=== PATIENT | female | born 1995 | race Hispanic/Latino ===

== ENCOUNTER 2021-06-27 15:14 | Day surgery (SDC) | payer OTHER ==
[2021-06-27 15:37] VITALS: BMI 29.2
[2021-06-27] MEDS ORDERED: hydrALAZINE 20 MG/ML VIAL SLOW IVP PRN (18:16)
== END 2021-06-27 17:25 | disposition home health service (06) ==
LOC: CSHLD/OP 15:14
PROVIDERS: ATTEND Obstetrics & Gynecology
DX: O36.8120 Decreased fetal movements, second trimester, not applicable or unspecified (principal); O99.342 Other mental disorders complicating pregnancy, second trimester; F43.9 Reaction to severe stress, unspecified; Z3A.24 24 weeks gestation of pregnancy; Z91.5 Personal history of self-harm
CPT/HCPCS: 99282

== ENCOUNTER 2021-09-04 12:49 | Inpatient (IN) | payer OTHER ==
[2021-09-04 13:26] VITALS: BMI 32.8
[2021-09-04] MEDS ORDERED: hydrALAZINE 20 MG/ML VIAL SLOW IVP PRN (13:26)
[2021-09-04] MEDS ORDERED: Promethazine HCl 25 MG/ML VIAL IM PRN (17:33)
[2021-09-04] MEDS ORDERED: Ondansetron PF 4 MG/2 ML Vial IVP PRN (17:33)
[2021-09-04] MEDS ORDERED: Zolpidem Tartrate 5 MG TAB PO PRN (17:33)
[2021-09-04] MEDS ORDERED: Acetaminophen 500 MG TAB PO PRN (17:33)
[2021-09-04 18:09] LABS: Hemoglobin 12.4 g/dL (12.0-15.5); Mean Corpuscular HGB CONC 35.4 g/dL (32.0-36.0); Mean Corpuscular Volume 93.1 fl (81.6-98.3); Mean Platelet Volume 9.6 fl (7.4-10.4); Platelet Count 242 10x3/uL (150-450); Red Blood Cell (RBC) Count 3.76 10x6/uL (3.90-5.03); White Blood Cell (WBC) Count 8.8 10x3/uL (3.5-10.5)
[2021-09-04 18:48] LABS: Syphilis Antibody Nonreactive (Nonreactive); Syphilis Antibody Index 0.04 S/CO (<1.00 Non-Reactive)
[2021-09-04 18:49] LABS: Hep B Surf Ag Non-Reactive S/CO (NonReactive)
[2021-09-04 18:52] LABS: HBSAg Index 0.19 S/CO (0-0.99)
[2021-09-04] MEDS: Betamet Acet/Betamet Na Ph 30 MG/5 ML VIAL IM SCH (18:53)
[2021-09-04 19:19] LABS: SARS-CoV-2 NAA Rapid Test Not Detected (NotDetected)
[2021-09-05] MEDS: Lactated Ringer's 1,000 ML IV SCH ×2 (09:00→11:30)
[2021-09-05] MEDS ORDERED: metFORMIN 500 MG TAB PO SCH ×2 (11:30→21:00)
[2021-09-05] MEDS: Betamet Acet/Betamet Na Ph 30 MG/5 ML VIAL IM SCH (18:32)
== END 2021-09-05 18:53 | disposition home or self-care (01) | DRG 833 ==
LOC: CSHLD/OP 12:49 → CSHLD 17:46
PROVIDERS: ADMIT Obstetrics & Gynecology; ATTEND Obstetrics & Gynecology
DX: O24.415 Gestational diabetes mellitus in pregnancy, controlled by oral hypoglycemic drugs (principal); Z20.822 Contact with and (suspected) exposure to COVID-19; Z3A.34 34 weeks gestation of pregnancy; O36.8330 Maternal care for abnormalities of the fetal heart rate or rhythm, third trimester, not applicable or unspecified; O28.8 Other abnormal findings on antenatal screening of mother
CPT/HCPCS: 36415; 36416; 76819; 85027; 86780; 86850; 86870; 86900; 86901; 87077; 87081; 87340; 87480; 87510; 87660; J0702; J7120; U0002

== ENCOUNTER 2021-09-06 17:45 | Day surgery (SDC) | payer OTHER ==
[2021-09-06 18:13] VITALS: BMI 32.8
== END 2021-09-06 20:21 | disposition home or self-care (01) ==
LOC: CSHLD/OP 17:45
PROVIDERS: ATTEND Obstetrics & Gynecology
DX: O36.8130 Decreased fetal movements, third trimester, not applicable or unspecified (principal); O24.419 Gestational diabetes mellitus in pregnancy, unspecified control; Z3A.34 34 weeks gestation of pregnancy; Z14.1 Cystic fibrosis carrier; Z90.49 Acquired absence of other specified parts of digestive tract; Z79.84 Long term (current) use of oral hypoglycemic drugs; Z79.899 Other long term (current) drug therapy
CPT/HCPCS: 76819

== ENCOUNTER 2021-09-25 19:37 | Day surgery (SDC) | payer OTHER ==
[2021-09-25 19:50] VITALS: BMI 33.4
[2021-09-25] MEDS ORDERED: hydrALAZINE 20 MG/ML VIAL SLOW IVP PRN (20:20)
== END 2021-09-25 20:39 | disposition home or self-care (01) ==
LOC: CSHLD/OP 19:37
PROVIDERS: ATTEND Obstetrics & Gynecology
DX: O99.891 Other specified diseases and conditions complicating pregnancy (principal); O24.419 Gestational diabetes mellitus in pregnancy, unspecified control; R10.9 Unspecified abdominal pain; Z3A.37 37 weeks gestation of pregnancy; Z79.84 Long term (current) use of oral hypoglycemic drugs; Z79.899 Other long term (current) drug therapy; Z90.49 Acquired absence of other specified parts of digestive tract
CPT/HCPCS: 99282

== ENCOUNTER 2021-09-29 10:45 | Inpatient (IN) | payer OTHER ==
[2021-09-29 12:53] VITALS: BMI 33.4
[2021-09-29] MEDS ORDERED: Acetaminophen 500 MG TAB PO PRN (13:27)
[2021-09-29] MEDS ORDERED: Ibuprofen 800 MG TAB PO PRN (13:27)
[2021-09-29] MEDS ORDERED: Methylergonovine 0.2 MG/ML VIAL IM PRN (13:27)
[2021-09-29] MEDS ORDERED: Carboprost 250 MCG/ML AMP IM PRN (13:27)
[2021-09-29] MEDS ORDERED: HYDROcodone/Acetaminophen 5/325 mg Tablet PO PRN (13:27)
[2021-09-29] MEDS ORDERED: Ondansetron PF 4 MG/2 ML Vial IVP PRN (13:27)
[2021-09-29] MEDS ORDERED: Promethazine HCl 25 MG/ML VIAL IM PRN (13:27)
[2021-09-29] MEDS ORDERED: Diphenoxylate HCl/Atropine Tablet PO PRN ×2 (13:27)
[2021-09-29] MEDS ORDERED: Butorphanol Tartrate 1 MG/ML VIAL SLOW IVP PRN (13:27)
[2021-09-29] MEDS ORDERED: Misoprostol 200 MCG TAB PR PRN (13:27)
[2021-09-29] MEDS ORDERED: Lidocaine 1% (PF) 30 ML VIAL SC PRN (13:27)
[2021-09-29] MEDS ORDERED: Docusate 100 MG CAP PO PRN (13:27)
[2021-09-29] MEDS ORDERED: hydrALAZINE 20 MG/ML VIAL SLOW IVP PRN (13:27)
[2021-09-29] MEDS ORDERED: NS w/ Oxytocin 30 units 500 ML IV SCH ×2 (13:30)
[2021-09-29] MEDS ORDERED: NS w/ Oxytocin 30 units 500 ML IVPB SCH (13:30)
[2021-09-29 13:54] LABS: Hemoglobin 12.3 g/dL (12.0-15.5); Mean Corpuscular HGB CONC 34.9 g/dL (32.0-36.0); Mean Corpuscular Hemoglobin 32.8 pg (27.0-33.0); Mean Corpuscular Volume 93.9 fl (81.6-98.3); Mean Platelet Volume 10.1 fl (7.4-10.4); Platelet Count 254 10x3/uL (150-450); RBC Distribution Width 13.5 % (11.5-14.5); Red Blood Cell (RBC) Count 3.75 10x6/uL (3.90-5.03); White Blood Cell (WBC) Count 8.2 10x3/uL (3.5-10.5)
[2021-09-29] MEDS ORDERED: Penicillin G Potassium 5 MILL.UNITS in Sodium Chloride 0.9% 100 ML IVPB SCH (14:00)
[2021-09-29] MEDS: Lactated Ringer's 1,000 ML IV SCH (14:02)
[2021-09-29 14:35] LABS: Hep B Surf Ag Non-Reactive S/CO (NonReactive); Syphilis Antibody Nonreactive (Nonreactive); Syphilis Antibody Index 0.05 S/CO (<1.00 Non-Reactive)
[2021-09-29 14:54] LABS: HBSAg Index 0.18 S/CO (0-0.99)
[2021-09-29] MEDS: Misoprostol 100 MCG TAB VAG SCH (15:16)
[2021-09-29 16:14] LABS: SARS-CoV-2 NAA Rapid Test Not Detected (NotDetected)
[2021-09-29] MEDS ORDERED: Dinoprostone 10 MG Suppository VAG SCH (17:00)
[2021-09-29] MEDS: Penicillin G 2.5 MILL.units 2.5 MILL.UNITS in Premix Bag 1 BAG IVPB SCH ×2 (19:01→23:17)
[2021-09-29] MEDS ORDERED: metFORMIN 500 MG TAB PO SCH (20:00)
[2021-09-29] MEDS ORDERED: Penicillin G Potassium 2.5 MILL.UNITS in Sodium Chloride 0.9% 50 ML IVPB SCH (23:15)
[2021-09-30] MEDS: Penicillin G 2.5 MILL.units 2.5 MILL.UNITS in Premix Bag 1 BAG IVPB SCH ×3 (03:03→16:04)
[2021-09-30] MEDS: Penicillin G Potassium 2.5 MILL.UNITS in Sodium Chloride 0.9% 50 ML IVPB SCH (07:11)
[2021-09-30] MEDS ORDERED: Fentanyl 2 mcg/Bup 0.1% Cadd 100 ML ONE (08:20)
[2021-09-30] MEDS: metFORMIN 500 MG TAB PO SCH (09:14)
[2021-09-30] MEDS ORDERED: Hydrocerin (Eucerin) Cream 120 gm Jar TOP PRN (09:35)
[2021-09-30] MEDS ORDERED: Naloxone HCl 0.4 mg/ml Vial IVP PRN ×2 (09:35)
[2021-09-30] MEDS ORDERED: ePHEDrine Sulfate 50 MG/10 ML VIAL SLOW IVP PRN (09:35)
[2021-09-30] MEDS ORDERED: Lactated Ringer's 500 ML IV PRN (09:35)
[2021-09-30] MEDS ORDERED: Promethazine HCl 25 MG/ML VIAL IM PRN (09:35)
[2021-09-30] MEDS ORDERED: diphenhydrAMINE 50 MG/ML VIAL IVP PRN (09:35)
[2021-09-30] MEDS ORDERED: Communication Order-Pharmacy FS PRN (09:45)
[2021-09-30] MEDS: Lactated Ringer's 1,000 ML IV SCH ×2 (10:08→17:36)
[2021-09-30] MEDS: Misoprostol 100 MCG TAB PO PRN ×2 (14:19→18:24)
[2021-09-30] MEDS: Ondansetron PF 4 MG/2 ML Vial IVP PRN ×2 (15:58→20:34)
[2021-09-30] MEDS: Fentanyl 2 mcg/Bupivacaine 0.1% Cassette 100 ML EPIDURAL SCH (17:37)
[2021-09-30] MEDS ORDERED: Ondansetron PF 4 MG/2 ML Vial ONE (20:35)
[2021-10-01] MEDS ORDERED: Penicillin G 2.5 MILL.units 50 ML ONE ×2 (00:03→05:51)
[2021-10-01] MEDS: Misoprostol 100 MCG TAB PO PRN ×2 (00:07→08:49)
[2021-10-01] MEDS: Fentanyl 2 mcg/Bupivacaine 0.1% Cassette 100 ML EPIDURAL SCH ×2 (00:26→08:50)
[2021-10-01] MEDS: Misoprostol 100 MCG TAB VAG SCH ×6 (05:53→12:45)
[2021-10-01] MEDS ORDERED: Penicillin G Potassium 2.5 MILL.UNITS in Sodium Chloride 0.9% 50 ML IVPB SCH ×2 (07:45→10:00)
[2021-10-01] MEDS: Lactated Ringer's 1,000 ML IV SCH ×4 (07:50→16:59)
[2021-10-01] MEDS: Penicillin G Potassium 2.5 MILL.UNITS in Sodium Chloride 0.9% 50 ML IVPB SCH ×3 (07:52→07:54)
[2021-10-01] MEDS: metFORMIN 500 MG TAB PO SCH ×2 (07:55→12:45)
[2021-10-01] MEDS: SODIUM CHLORIDE IVPB SCH ×2 (10:18→14:27)
[2021-10-01] MEDS: PENICILLIN IVPB SCH ×2 (10:18→14:27)
[2021-10-01] MEDS: Acetaminophen 325 MG TAB PO PRN (15:47)
[2021-10-01] MEDS ORDERED: Azithromycin 500 MG VIAL ONE (21:26)
[2021-10-01] MEDS ORDERED: PHENYLEPHRINE-NS 100 MCG/ML 10 ML SYRINGE ONE ×7 (21:49→23:37)
[2021-10-01] MEDS ORDERED: Fentanyl 100 MCG/2 ML VIAL ONE ×2 (21:56→22:19)
[2021-10-01] MEDS ORDERED: Methylergonovine 0.2 MG/ML VIAL ONE ×2 (21:57→22:35)
[2021-10-01] MEDS ORDERED: Lidocaine 2% PF 100 mg/5 ml Syringe ONE (22:03)
[2021-10-01] MEDS ORDERED: Ketamine 50 MG/ML (10ML VIAL) ONE (22:15)
[2021-10-01] MEDS ORDERED: Midazolam HCl 2 mg/2 ml Vial ONE (22:17)
[2021-10-01] MEDS ORDERED: Tranexamic Acid 1,000 MG/10 ML VIAL ONE ×2 (22:20→23:35)
[2021-10-01] MEDS ORDERED: Carboprost 250 MCG/ML AMP ONE ×3 (22:22→23:38)
[2021-10-01] MEDS ORDERED: Oxytocin 10 UNITS/ML VIAL ONE (22:35)
[2021-10-01] MEDS ORDERED: Misoprostol 200 MCG TAB ONE (23:33)
[2021-10-02] MEDS ORDERED: Carboprost 250 MCG/ML AMP ONE (00:02)
[2021-10-02] MEDS ORDERED: Fentanyl 100 MCG/2 ML VIAL ONE ×2 (00:22→02:39)
[2021-10-02] MEDS ORDERED: PROPOFOL 20 ML ONE (00:22)
[2021-10-02] MEDS ORDERED: cefTRIAXone\\ROCEPHIN 1 GM VIAL ONE (00:30)
[2021-10-02 00:37] LABS: Hemoglobin 12.2 g/dL (12.0-15.5); Mean Corpuscular HGB CONC 31.9 g/dL (32.0-36.0); Platelet Count 226 10x3/uL (150-450); RBC Distribution Width 19.5 % (11.5-14.5); Red Blood Cell (RBC) Count 4.35 10x6/uL (3.90-5.03); White Blood Cell (WBC) Count 34.9 10x3/uL (3.5-10.5)
[2021-10-02] MEDS ORDERED: PHENYLEPHRINE-NS 100 MCG/ML 10 ML SYRINGE ONE (00:39)
[2021-10-02] MEDS ORDERED: Calcium Chloride 1 GM/10 ML Abboject SYRINGE ONE ×2 (00:39→08:00)
[2021-10-02] MEDS ORDERED: Rocuronium Bromide 10 MG/ML (10ML VIAL) ONE (00:41)
[2021-10-02] MEDS ORDERED: Morphine PF 10 MG/10 ML VIAL ONE (01:06)
[2021-10-02] MEDS ORDERED: Albumin 5% 250 ML ONE (01:25)
[2021-10-02] MEDS ORDERED: Midazolam HCl 5 mg/5 ml Vial ONE (01:34)
[2021-10-02] MEDS ORDERED: metroNIDAZOLE 500 MG/100 ML BAG ONE (01:47)
[2021-10-02 02:25] LABS: Fibrinogen 277 mg/dL (220-504); INR-International Normal Ratio 1.1; PTT 27.1 sec (22.0-33.0); Prothrombin Time 11.9 sec (9.5-12.1)
[2021-10-02 02:27] LABS: D-Dimer Test Greater than 35.20 mg/L FEU (0.19-0.50)
[2021-10-02 02:39] LABS: Platelet Count 226 10x3/uL (150-450)
[2021-10-02] MEDS ORDERED: Morphine 2 MG/ML VIAL SLOW IVP PRN (03:15)
[2021-10-02] MEDS ORDERED: Lorazepam 2 MG/ML VIAL SLOW IVP PRN (03:15)
[2021-10-02] MEDS ORDERED: Propofol 1,000 MG/100 ML VIAL IV ONE (03:15)
[2021-10-02] MEDS ORDERED: DISCONTINUE PREVIOUS NARCOTIC PAIN MEDICATIONS AND BENZODIAZEPINES FS SCH (03:15)
[2021-10-02] MEDS ORDERED: Propofol 1,000 MG/100 ML VIAL IV PRN (03:15)
[2021-10-02] MEDS ORDERED: fentaNYL Citrate-0.9 % NaCl/PF 100 ML IVPB SCH (03:15)
[2021-10-02] MEDS ORDERED: Fentanyl BOLUS 250 ML IVPB PRN (03:15)
[2021-10-02] MEDS ORDERED: Propofol BOLUS 1,000 MG/100 ML VIAL IV PRN (03:15)
[2021-10-02] MEDS: Lactated Ringer's 1,000 ML IV SCH ×2 (03:38→15:49)
[2021-10-02 03:41] LABS: ALV-art Gradient 186.025 mmHg (0-20); Actual Bicarbonate (HCO3a) 16.7 mEq/L (22-28); CO2 Tension 27.9 mmHg (35.0-45.0); Calcium, Ionized (arterial) 1.37 mmol/L (1.12-1.30); Carboxyhemoglobin (COHb) 0.6 gm% (0.0-3.0); Hemoglobin (Hb) 10.8 g/dL (12.0-16.0); O2 Tension (PaO2), arterial 206.9 mmHg (80.0-100.0); Potassium - ABG Lab 4.1 mmol/L (3.70-5.30); Puncture Site RBA; pH, Arterial 7.39 (7.35-7.45)
[2021-10-02] MEDS: Morphine 4 MG/ML VIAL SLOW IVP PRN ×9 (04:18→21:07)
[2021-10-02 04:31] LABS: Hemoglobin 10.3 g/dL (12.0-15.5); Mean Corpuscular Volume 85.7 fl (81.6-98.3); Mean Platelet Volume 9.2 fl (7.4-10.4); RBC Distribution Width 16.6 % (11.5-14.5); Red Blood Cell (RBC) Count 3.43 10x6/uL (3.90-5.03); White Blood Cell (WBC) Count 14.1 10x3/uL (3.5-10.5)
[2021-10-02 04:43] LABS: ALT (SGPT) 12 U/L (8-55); AST (SGOT) 21 U/L (5-34); Albumin 2.5 g/dL (3.5-5.0); Alkaline Phosphatase 77 U/L (40-110); Anion Gap 13 mmol/L (10-20); BUN (Urea Nitrogen) 6 mg/dL (7.0-18.7); Bilirubin, Total 6.5 mg/dL (0.2-1.2); Calc. Creatinine Clearance 151 mL/min (70-130); Calcium 9.5 mg/dL (7.8-10.44); Carbon Dioxide 15 mmol/L (22-29); Chloride 113 mmol/L (98-107); Globulin 1.5 g/dL (2.4-3.5); Glucose 130 mg/dL (70-105); Potassium 4.7 mmol/L (3.5-5.1); Sodium 136 mmol/L (136-145)
[2021-10-02 07:01] LABS: Band 31 % (5-11); Lymphocytes 5 % (21-51); Monocytes 7 % (0-10); Neutrophil 57 % (42-75)
[2021-10-02 07:02] LABS: Anisocytosis SLIGHT = 6-15 cells (100X) (0-5/hpf); Burr Cells SLIGHT = 2-5 cells (100X) (0-1/hpf); Microcytosis SLIGHT = 6-15 cells (100X) (0-5/hpf)
[2021-10-02 07:03] LABS: Large Platelets SLIGHT; Ovalocytes SLIGHT = 2-5 cells (100X) (0-1/hpf)
[2021-10-02 07:04] LABS: Platelet Count 115 10x3/uL (150-450); Platelet Morphology Comment Appears Decreased; Toxic Granulation SLIGHT
[2021-10-02 07:15] LABS: MDiff Complete? YES
[2021-10-02] MEDS ORDERED: CEFAZOLIN 2 GM in Premix Bag 1 BAG IVPB SCH (08:00)
[2021-10-02] MEDS: metFORMIN 500 MG TAB PO SCH ×2 (08:00→19:51)
[2021-10-02] MEDS ORDERED: Furosemide 20 MG/2 ML VIAL SLOW IVP SCH (08:15)
[2021-10-02] MEDS: cefTRIAXone\\ROCEPHIN 1 GM in Sodium Chloride 0.9% 100 ML IVPB SCH ×2 (08:30→21:06)
[2021-10-02] MEDS ORDERED: Piperacillin/Tazobactam 3.375 GM in Sodium Chloride 0.9% 100 ML IVPB SCH (13:00)
[2021-10-02] MEDS ORDERED: Ketorolac Tromethamine 30 MG/ML VIAL IVP SCH (17:00)
[2021-10-02] MEDS: Piperacillin/Tazobactam 3.375 GM in Sodium Chloride 0.9% 100 ML IVPB SCH (17:37)
[2021-10-02] MEDS ORDERED: Ondansetron PF 4 MG/2 ML Vial IVP PRN (21:01)
[2021-10-02] MEDS ORDERED: HYDROmorphone 10 mg/100 ml CADD IVPB PRN (21:01)
[2021-10-02] MEDS ORDERED: Promethazine HCl 25 MG/ML VIAL IM PRN (21:01)
[2021-10-02] MEDS ORDERED: diphenhydrAMINE 25 MG CAP PO PRN (21:01)
[2021-10-02] MEDS ORDERED: Naloxone HCl 0.4 mg/ml Vial IV PRN (21:01)
[2021-10-02] MEDS ORDERED: Zolpidem Tartrate 5 MG TAB PO PRN (21:01)
[2021-10-02] MEDS ORDERED: diphenhydrAMINE 50 MG/ML VIAL IVP PRN (21:01)
[2021-10-02] MEDS ORDERED: diphenhydrAMINE 50 MG/ML VIAL IM PRN (21:01)
[2021-10-02] MEDS: Acetaminophen 325 MG TAB PO PRN (21:06)
[2021-10-02] MEDS ORDERED: Communication Order-Pharmacy FS SCH (21:15)
[2021-10-02 22:00] LABS: PTT 29.8 sec (22.0-33.0); Prothrombin Time 10.6 sec (9.5-12.1)
[2021-10-02] MEDS ORDERED: ADMIXTURE FEE IV PRN (22:00)
[2021-10-02] MEDS ORDERED: ADMIXTURE FEE IVPB PRN (22:00)
[2021-10-02] MEDS ORDERED: HYDROMORPHONE HCL IVPB PRN (22:00)
[2021-10-02] MEDS ORDERED: SODIUM CHLORIDE IVPB PRN (22:00)
[2021-10-02] MEDS ORDERED: HYDROMORPHONE IV PRN (22:00)
[2021-10-02] MEDS ORDERED: SODIUM CHLORIDE IV PRN (22:00)
[2021-10-02 22:05] LABS: Hemoglobin 5.8 g/dL (12.0-15.5); Mean Corpuscular HGB CONC 34.9 g/dL (32.0-36.0); Mean Corpuscular Hemoglobin 30.1 pg (27.0-33.0); Mean Platelet Volume 10.2 fl (7.4-10.4); Platelet Count 104 10x3/uL (150-450); RBC Distribution Width 17.1 % (11.5-14.5); Red Blood Cell (RBC) Count 1.93 10x6/uL (3.90-5.03); White Blood Cell (WBC) Count 9.3 10x3/uL (3.5-10.5)
[2021-10-02 22:26] LABS: ALT (SGPT) 11 U/L (8-55); AST (SGOT) 17 U/L (5-34); Albumin 2.1 g/dL (3.5-5.0); Alkaline Phosphatase 69 U/L (40-110); Anion Gap 10 mmol/L (10-20); BUN (Urea Nitrogen) 11 mg/dL (7.0-18.7); Bilirubin, Total 0.8 mg/dL (0.2-1.2); Calc. Creatinine Clearance 139 mL/min (70-130); Calcium 7.4 mg/dL (7.8-10.44); Carbon Dioxide 21 mmol/L (22-29); Chloride 107 mmol/L (98-107); Globulin 1.7 g/dL (2.4-3.5); Glucose 91 mg/dL (70-105); Potassium 3.4 mmol/L (3.5-5.1); Protein, Total 3.8 g/dL (6.0-8.3); Sodium 135 mmol/L (136-145)
[2021-10-02 22:54] LABS: Band 24 % (5-11); Lymphocytes 12 % (21-51)
[2021-10-02 22:55] LABS: Monocytes 6 % (0-10); Neutrophil 58 % (42-75)
[2021-10-02 22:56] LABS: Anisocytosis SLIGHT = 6-15 cells (100X) (0-5/hpf); Large Platelets SLIGHT; Microcytosis SLIGHT = 6-15 cells (100X) (0-5/hpf); Platelet Morphology Comment Appears Decreased
[2021-10-02 22:57] LABS: Hypochromia SLIGHT = 6-15 cells (100X) (0-5/hpf); Toxic Granulation SLIGHT
[2021-10-02 22:58] LABS: MDiff Complete? YES
[2021-10-03] MEDS: Piperacillin/Tazobactam 3.375 GM in Sodium Chloride 0.9% 100 ML IVPB SCH ×3 (03:31→17:10)
[2021-10-03 08:28] LABS: Mean Corpuscular HGB CONC 35.3 g/dL (32.0-36.0); Mean Corpuscular Hemoglobin 30.1 pg (27.0-33.0); Mean Corpuscular Volume 85.3 fl (81.6-98.3); Mean Platelet Volume 9.6 fl (7.4-10.4); Platelet Count 94 10x3/uL (150-450); RBC Distribution Width 16.2 % (11.5-14.5); Red Blood Cell (RBC) Count 2.99 10x6/uL (3.90-5.03); White Blood Cell (WBC) Count 10.7 10x3/uL (3.5-10.5)
[2021-10-03] MEDS ORDERED: diphenhydrAMINE 50 MG/ML VIAL IM PRN (08:31)
[2021-10-03] MEDS ORDERED: Promethazine HCl 25 MG/ML VIAL IM PRN (08:31)
[2021-10-03] MEDS ORDERED: diphenhydrAMINE 25 MG CAP PO PRN (08:31)
[2021-10-03] MEDS ORDERED: Ondansetron PF 4 MG/2 ML Vial IVP PRN (08:31)
[2021-10-03] MEDS ORDERED: diphenhydrAMINE 50 MG/ML VIAL IVP PRN (08:31)
[2021-10-03] MEDS ORDERED: Naloxone HCl 0.4 mg/ml Vial IV PRN (08:31)
[2021-10-03] MEDS ORDERED: HYDROmorphone 10 mg/100 ml CADD IVPB PRN (08:31)
[2021-10-03] MEDS ORDERED: Zolpidem Tartrate 5 MG TAB PO PRN (08:31)
[2021-10-03 08:35] LABS: #Eosinphils 0.2 10x3/uL (0.0-0.5); #Monocytes 0.7 10x3/uL (0.0-1.1); #Neutrophils 8.4 10x3/uL (1.5-8.4); %Basophils 0.3 % (0.0-2.0); %Eosinophils 1.4 % (0.0-6.0); %Lymphocytes 13.7 % (18.0-47.0); %Monocytes 6.1 % (0.0-10.0); %Neutrophils 78.1 % (40.0-75.0)
[2021-10-03] MEDS: cefTRIAXone\\ROCEPHIN 1 GM in Sodium Chloride 0.9% 100 ML IVPB SCH ×2 (08:38→20:04)
[2021-10-03] MEDS: metFORMIN 500 MG TAB PO SCH ×3 (08:39→16:42)
[2021-10-03] MEDS ORDERED: Communication Order-Pharmacy FS PRN (08:45)
[2021-10-03] MEDS ORDERED: HYDROMORPHONE HCL IVPB PRN (08:48)
[2021-10-03] MEDS ORDERED: ADMIXTURE FEE IVPB PRN (08:48)
[2021-10-03] MEDS ORDERED: SODIUM CHLORIDE IVPB PRN (08:48)
[2021-10-03 08:49] LABS: Anion Gap 10 mmol/L (10-20); BUN (Urea Nitrogen) 8 mg/dL (7.0-18.7); Calc. Creatinine Clearance 163 mL/min (70-130); Calcium 7.7 mg/dL (7.8-10.44); Carbon Dioxide 21 mmol/L (22-29); Chloride 107 mmol/L (98-107); Glucose 108 mg/dL (70-105); Potassium 3.3 mmol/L (3.5-5.1); Sodium 135 mmol/L (136-145)
[2021-10-03] MEDS: Acetaminophen 325 MG TAB PO PRN (20:04)
[2021-10-04] MEDS: Acetaminophen 325 MG TAB PO PRN ×2 (01:12→05:20)
[2021-10-04] MEDS: Piperacillin/Tazobactam 3.375 GM in Sodium Chloride 0.9% 100 ML IVPB SCH ×2 (01:13→07:53)
[2021-10-04 03:49] LABS: #Eosinphils 0.2 10x3/uL (0.0-0.5); #Monocytes 0.6 10x3/uL (0.0-1.1); #Neutrophils 8.5 10x3/uL (1.5-8.4); %Basophils 0.3 % (0.0-2.0); %Eosinophils 1.9 % (0.0-6.0); %Lymphocytes 16.7 % (18.0-47.0); %Monocytes 5.4 % (0.0-10.0); %Neutrophils 75.3 % (40.0-75.0); Mean Corpuscular HGB CONC 36.3 g/dL (32.0-36.0); Mean Corpuscular Hemoglobin 30.1 pg (27.0-33.0); Mean Corpuscular Volume 82.9 fl (81.6-98.3); Mean Platelet Volume 10.1 fl (7.4-10.4); Platelet Count 128 10x3/uL (150-450); RBC Distribution Width 16.1 % (11.5-14.5); Red Blood Cell (RBC) Count 2.99 10x6/uL (3.90-5.03); White Blood Cell (WBC) Count 11.2 10x3/uL (3.5-10.5)
[2021-10-04 04:00] LABS: Anion Gap 11 mmol/L (10-20); BUN (Urea Nitrogen) 6 mg/dL (7.0-18.7); Calc. Creatinine Clearance 183 mL/min (70-130); Calcium 7.7 mg/dL (7.8-10.44); Carbon Dioxide 20 mmol/L (22-29); Chloride 109 mmol/L (98-107); Glucose 79 mg/dL (70-105); Potassium 3.1 mmol/L (3.5-5.1); Sodium 137 mmol/L (136-145)
[2021-10-04] MEDS: metFORMIN 500 MG TAB PO SCH (07:27)
[2021-10-04] MEDS: cefTRIAXone\\ROCEPHIN 1 GM in Sodium Chloride 0.9% 100 ML IVPB SCH (07:53)
[2021-10-04] MEDS ORDERED: hydrALAZINE 20 MG/ML VIAL SLOW IVP PRN ×2 (09:26→11:20)
[2021-10-04] MEDS ORDERED: Ondansetron PF 4 MG/2 ML Vial IVP PRN (09:26)
[2021-10-04] MEDS ORDERED: Lanolin Ointment 7 GM TUBE TOP PRN ×2 (09:26→11:20)
[2021-10-04] MEDS ORDERED: Bisacodyl 10 MG SUPP PR PRN ×2 (09:26→11:20)
[2021-10-04] MEDS ORDERED: Acetaminophen 325 MG TAB PO PRN (09:26)
[2021-10-04] MEDS ORDERED: Simethicone Chewable 80 MG TAB PO PRN (09:26)
[2021-10-04] MEDS ORDERED: Meperidine HCl/PF 25 MG/ML VIAL IM PRN (09:26)
[2021-10-04] MEDS ORDERED: HYDROcodone/Acetaminophen 5/325 mg Tablet PO PRN ×2 (09:26→11:20)
[2021-10-04] MEDS: Misoprostol 100 MCG TAB VAG SCH (10:42)
[2021-10-04] MEDS: Penicillin G Potassium 2.5 MILL.UNITS in Sodium Chloride 0.9% 50 ML IVPB SCH (10:42)
[2021-10-04] MEDS ORDERED: Zolpidem Tartrate 5 MG TAB PO PRN (11:20)
[2021-10-04] MEDS ORDERED: Promethazine HCl 25 MG/ML VIAL IM PRN (11:20)
[2021-10-04] MEDS ORDERED: Benzocaine-Menthol 82.5 ML CAN TOP PRN (11:20)
[2021-10-04] MEDS ORDERED: Boostrix 0.5 ML (Tdap) VIAL IM ONE (11:20)
[2021-10-04] MEDS ORDERED: diphenhydrAMINE 25 MG CAP PO PRN (11:20)
[2021-10-04] MEDS ORDERED: Ibuprofen 800 MG TAB PO SCH (11:20)
[2021-10-04] MEDS ORDERED: Preparation H Ointment 28 GM TUBE PR PRN (11:20)
[2021-10-04] MEDS ORDERED: Misoprostol 200 MCG TAB VAG PRN (11:20)
[2021-10-04] MEDS ORDERED: Methylergonovine 0.2 MG/ML VIAL IM PRN (11:20)
[2021-10-04] MEDS ORDERED: NS w/ Oxytocin 30 units 500 ML IV SCH (11:20)
[2021-10-04] MEDS ORDERED: Milk Of Magnesia 30 ML UDCUP PO PRN (11:20)
[2021-10-04] MEDS ORDERED: Docusate Calcium (SURFAK) 240 MG CAP PO SCH ×2 (12:00→21:00)
[2021-10-04] MEDS ORDERED: Ferrous Sulfate 325 MG TAB PO SCH (12:00)
[2021-10-04] MEDS ORDERED: Prenatal Vitamin 1 TAB PO SCH (12:00)
[2021-10-04] MEDS: HYDROcodone/Acetaminophen 5/325 mg Tablet PO PRN ×2 (12:02→20:02)
[2021-10-04] MEDS: Ibuprofen 800 MG TAB PO SCH ×2 (12:02→22:19)
[2021-10-04] MEDS: Ondansetron PF 4 MG/2 ML Vial IVP PRN (14:46)
[2021-10-04] MEDS: Ferrous Sulfate 325 MG TAB PO SCH (20:03)
[2021-10-04] MEDS: Docusate Calcium (SURFAK) 240 MG CAP PO SCH (20:03)
[2021-10-05] MEDS: HYDROcodone/Acetaminophen 5/325 mg Tablet PO PRN ×3 (01:41→19:13)
[2021-10-05 04:19] LABS: Mean Corpuscular HGB CONC 34.6 g/dL (32.0-36.0); Mean Corpuscular Hemoglobin 29.6 pg (27.0-33.0); Mean Corpuscular Volume 85.5 fl (81.6-98.3); Mean Platelet Volume 9.8 fl (7.4-10.4); Platelet Count 166 10x3/uL (150-450); RBC Distribution Width 15.9 % (11.5-14.5); Red Blood Cell (RBC) Count 3.04 10x6/uL (3.90-5.03); White Blood Cell (WBC) Count 9.1 10x3/uL (3.5-10.5)
[2021-10-05] MEDS: Ibuprofen 800 MG TAB PO SCH ×3 (05:07→21:25)
[2021-10-05] MEDS: Ondansetron PF 4 MG/2 ML Vial IVP PRN ×3 (05:33→21:28)
[2021-10-05] MEDS ORDERED: Boostrix 0.5 ML (Tdap) VIAL IM ONE (09:26)
[2021-10-05] MEDS: Ferrous Sulfate 325 MG TAB PO SCH (09:46)
[2021-10-05] MEDS: Prenatal Vitamin 1 TAB PO SCH (09:46)
[2021-10-05] MEDS: Docusate Calcium (SURFAK) 240 MG CAP PO SCH ×2 (09:46→21:25)
[2021-10-05] MEDS ORDERED: Varicella virus, LIVE 0.5 ML VIAL SC ONE (11:20)
[2021-10-05] MEDS ORDERED: Measles/Mumps/Rubella 10 MCG/0.5 ML VIAL SC ONE (11:20)
[2021-10-06] MEDS: Ferrous Sulfate 325 MG TAB PO SCH ×2 (01:35→08:20)
[2021-10-06] MEDS: HYDROcodone/Acetaminophen 5/325 mg Tablet PO PRN ×3 (05:11→16:20)
[2021-10-06] MEDS: Ibuprofen 800 MG TAB PO SCH ×2 (05:12→14:31)
[2021-10-06] MEDS: Docusate Calcium (SURFAK) 240 MG CAP PO SCH (08:20)
[2021-10-06] MEDS: Prenatal Vitamin 1 TAB PO SCH (08:20)
[2021-10-06 08:33] VITALS: BP 126/75; TEMP 97.7
== END 2021-10-06 17:15 | disposition home or self-care (01) | DRG 786 ==
LOC: CSHLD/OP 10:45 → CSHLD 13:35 → CSHICU 10-02 03:02 → CSHPP 10-04 10:43 → CSHANTE 10-04 10:58 → CSHPP 10-05 17:15
PROVIDERS: ADMIT Obstetrics & Gynecology; ATTEND Obstetrics & Gynecology
PROC: 10D00Z1 Extraction of Products of Conception, Low, Open Approach (ICD-10-PCS; principal; 2021-10-01)
PROC: 0UT90ZL Resection of Uterus, Supracervical, Open Approach (ICD-10-PCS; 2021-10-02)
PROC: 30233L1 Transfusion of Nonautologous Fresh Plasma into Peripheral Vein, Percutaneous Approach (ICD-10-PCS; 2021-10-02)
PROC: 30233N1 Transfusion of Nonautologous Red Blood Cells into Peripheral Vein, Percutaneous Approach (ICD-10-PCS; 2021-10-02)
PROC: 30233R1 Transfusion of Nonautologous Platelets into Peripheral Vein, Percutaneous Approach (ICD-10-PCS; 2021-10-02)
PROC: 30233K1 Transfusion of Nonautologous Frozen Plasma into Peripheral Vein, Percutaneous Approach (ICD-10-PCS; 2021-10-02)
DX: O76 Abnormality in fetal heart rate and rhythm complicating labor and delivery (principal); O41.1230 Chorioamnionitis, third trimester, not applicable or unspecified; O72.1 Other immediate postpartum hemorrhage; D62 Acute posthemorrhagic anemia; J81.1 Chronic pulmonary edema; Z20.822 Contact with and (suspected) exposure to COVID-19; O24.429 Gestational diabetes mellitus in childbirth, unspecified control; Z3A.37 37 weeks gestation of pregnancy; Z37.0 Single live birth; O99.52 Diseases of the respiratory system complicating childbirth; O99.214 Obesity complicating childbirth; O90.81 Anemia of the puerperium; O32.4XX0 Maternal care for high head at term, not applicable or unspecified
CPT/HCPCS: 36415; 36416; 36430; 36600; 51702; 71045; 74177; 80048; 80053; 82805; 85025; 85027; 85049; 85300; 85362; 85379; 85384; 85610; 85730; 86780; 86850; 86900; 86901; 87340; 88307; 90715; 94002; 94760; 99285; J0595; J0690; J0696; J1885; J1940; J2250; J2270; J2274; J2370; J2405; J2540; J2543; J2550; J2590; J2704; J3010; J3490; J7120; P9016; P9035; P9045; P9059; U0002

== ENCOUNTER 2023-08-01 12:39 | Observation (INO) | payer OTHER ==
[2023-08-01] MEDS ORDERED: Ondansetron PF 4 MG/2 ML Vial ONE ×2 (13:08→15:53)
[2023-08-01] MEDS ORDERED: HYDROmorphone 0.5 MG/0.5 ML SYRINGE ONE ×2 (13:08→14:05)
[2023-08-01 13:14] LABS: #Basophils 0.1 10x3/uL (0.0-0.2); #Eosinphils 0.1 10x3/uL (0.0-0.5); #Monocytes 0.5 10x3/uL (0.0-1.1); #Neutrophils 11.2 10x3/uL (1.5-8.4); %Basophils 0.4 % (0.0-2.0); %Eosinophils 0.5 % (0.0-6.0); %Lymphocytes 13.2 % (18.0-47.0); %Monocytes 3.4 % (0.0-10.0); %Neutrophils 82.2 % (40.0-75.0); Hematocrit 42.6 % (34.9-44.5); Hemoglobin 15.5 g/dL (12.0-15.5); Mean Corpuscular HGB CONC 36.4 g/dL (32.0-36.0); Mean Corpuscular Hemoglobin 32.8 pg (27.0-33.0); Mean Corpuscular Volume 90.1 fl (81.6-98.3); Mean Platelet Volume 10.6 fl (7.4-10.4); Platelet Count 284 10x3/uL (150-450); RBC Distribution Width 12.2 % (11.5-14.5); Red Blood Cell (RBC) Count 4.73 10x6/uL (3.90-5.03); White Blood Cell (WBC) Count 13.6 10x3/uL (3.5-10.5)
[2023-08-01 13:24] LABS: ALT (SGPT) 25 U/L (8-55); AST (SGOT) 15 U/L (5-34); Albumin 4.9 g/dL (3.5-5.0); Alkaline Phosphatase 107 U/L (40-110); Anion Gap 19 mmol/L (10-20); BUN (Urea Nitrogen) 10 mg/dL (7.0-18.7); Bilirubin, Total 0.4 mg/dL (0.2-1.2); Calc. Creatinine Clearance 0 mL/min (70-130); Calcium 9.4 mg/dL (7.8-10.44); Carbon Dioxide 18 mmol/L (22-29); Chloride 108 mmol/L (98-107); Estimated GFR 111; Globulin 3.2 g/dL (2.4-3.5); Glucose 119 mg/dL (70-105); Lipase 35 U/L (8-78); Magnesium 1.8 mg/dL (1.6-2.6); Potassium 3.9 mmol/L (3.5-5.1); Protein, Total 8.1 g/dL (6.0-8.3); Sodium 141 mmol/L (136-145)
[2023-08-01] MEDS ORDERED: Ketorolac Tromethamine 30 MG/ML VIAL ONE (13:47)
[2023-08-01 13:58] LABS: Bilirubin Neg (Negative); Blood, Urine 250 (Negative); Clarity Cloudy (Clear); Glucose, Urine (Dipstick) Normal (Negative); Ketone, Urine 5 mg/dL (Negative); Leukocyte Negative (Negative); Nitrite Negative (Negative); Protein, Urine (Dipstick) 100 mg/dl (Neg-Trace); Specific Gravity, Urine 1.025 (1.005-1.030); Urobilinogen Normal mg/dL (Less than 2)
[2023-08-01 14:02] LABS: Bacteria/HPF 2+ HPF (None Seen); CAUTI Indications for Culture Pelvic or flank pain; RBC/HPF Greater than 50 HPF (0-3); Squamous Epithelial 0-3 HPF (0-3)
[2023-08-01 14:03] LABS: Urine Culture Reflex No No
[2023-08-01] MEDS ORDERED: Iopamidol 30 ML ONE (15:25)
[2023-08-01] MEDS ORDERED: Acetaminophen 325 MG TAB PO PRN (15:32)
[2023-08-01] MEDS ORDERED: Sodium Chloride 0.9% 1,000 ML IV SCH (15:45)
[2023-08-01] MEDS ORDERED: SUGAMMADEX SODIUM 200 MG/2 ML VIAL ONE (15:52)
[2023-08-01] MEDS ORDERED: PROPOFOL 20 ML ONE (15:53)
[2023-08-01] MEDS ORDERED: fentaNYL 50 mcg/mL 1 mL Vial ONE (15:53)
[2023-08-01] MEDS ORDERED: Midazolam HCl 2 mg/2 ml Vial ONE (15:53)
[2023-08-01] MEDS ORDERED: Rocuronium Bromide 10 MG/ML (10ML VIAL) ONE (15:53)
[2023-08-01] MEDS ORDERED: Succinylcholine 200 MG/10 ml SYRINGE FS ONE (15:53)
[2023-08-01] MEDS ORDERED: Lidocaine 1% PF 5 ML VIAL ONE (15:53)
[2023-08-01] MEDS ORDERED: Dexamethasone 4 mg/ml Vial ONE (15:53)
[2023-08-01] MEDS ORDERED: cefTRIAXone (ROCEPHIN) 1 GM VIAL ONE (15:55)
[2023-08-01] MEDS: Ondansetron ODT 4 MG TAB PO PRN (19:28)
[2023-08-01] MEDS: HYDROcodone/Acetaminophen 5/325 mg Tablet PO PRN (22:23)
[2023-08-01] MEDS ORDERED: Phenazopyridine HCl 95 MG TAB PO SCH (23:30)
[2023-08-01] MEDS ORDERED: cefTRIAXone\\ROCEPHIN 2 GM in Sodium Chloride 0.9% 100 ML IVPB SCH (23:30)
[2023-08-01 23:40] VITALS: BMI 27.9
[2023-08-02] MEDS ORDERED: Ketorolac Tromethamine 30 MG/ML VIAL IVP SCH (02:00)
[2023-08-02 03:46] LABS: Hematocrit 36.6 % (34.9-44.5); Hemoglobin 13.1 g/dL (12.0-15.5); Mean Corpuscular HGB CONC 35.8 g/dL (32.0-36.0); Mean Corpuscular Hemoglobin 32.8 pg (27.0-33.0); Mean Corpuscular Volume 91.7 fl (81.6-98.3); Mean Platelet Volume 10.9 fl (7.4-10.4); Platelet Count 249 10x3/uL (150-450); Red Blood Cell (RBC) Count 3.99 10x6/uL (3.90-5.03); White Blood Cell (WBC) Count 11.5 10x3/uL (3.5-10.5)
[2023-08-02 04:04] LABS: Anion Gap 15 mmol/L (10-20); BUN (Urea Nitrogen) 11 mg/dL (7.0-18.7); Calc. Creatinine Clearance 121 mL/min (70-130); Calcium 8.8 mg/dL (7.8-10.44); Carbon Dioxide 21 mmol/L (22-29); Chloride 107 mmol/L (98-107); Estimated GFR 118; Glucose 147 mg/dL (70-105); Potassium 3.6 mmol/L (3.5-5.1); Sodium 139 mmol/L (136-145)
[2023-08-02] MEDS: HYDROcodone/Acetaminophen 5/325 mg Tablet PO PRN ×2 (04:33→10:20)
[2023-08-02 04:43] LABS: MDiff Complete? YES
[2023-08-02 05:20] LABS: Platelet Adequacy Comment Appears Adequate; RBC Morph Comment Within Normal Limits
[2023-08-02 05:21] LABS: Band 5 % (5-11); Eosinophils 1 % (0-10); Lymphocytes 12 % (21-51); Monocytes 8 % (0-10); Neutrophil 74 % (42-75)
[2023-08-02] MEDS ORDERED: Ciprofloxacin 500 MG TAB PO SCH (06:00)
[2023-08-02 09:02] VITALS: TEMP 98.1
[2023-08-02 12:01] VITALS: BP 113/76
[2023-08-02] MEDS: Ondansetron ODT 4 MG TAB PO PRN (12:42)
[2023-08-02 17:19] LABS: Hemoglobin A1c 4.2 % (4.0-6.0)
== END 2023-08-02 15:30 | disposition home or self-care (01) ==
LOC: CSHERS 12:39 → INTOOBSV 18:30 → CSHTELE 18:30
PROVIDERS: ADMIT Surgery; ATTEND Internal Medicine
PROC: 0WHR8YZ Insertion of Other Device into Genitourinary Tract, Via Natural or Artificial Opening Endoscopic (ICD-10-PCS; principal; 2023-08-01)
DX: N13.2 Hydronephrosis with renal and ureteral calculous obstruction (principal); D72.829 Elevated white blood cell count, unspecified; Z90.49 Acquired absence of other specified parts of digestive tract; Z90.710 Acquired absence of both cervix and uterus
CPT/HCPCS: 36415; 51600; 74176; 74430; 76856; 80048; 80053; 81001; 83036; 83690; 83735; 85025; 96361; 96374; 96375; 96376; C2617; G0378; J0696; J1100; J1170; J1885; J2250; J2405; J2704; J3010; J3490; J7050; Q0162; Q9967